=== PATIENT | male | born 2005 | race Caucasian/White ===

== ENCOUNTER → 2024-08-18 08:58 | Outpatient (CLI) | payer OTHER, MEDICAID, SELFPAY | PROVIDERS: PCP Pediatrics; Referring Provider Family Medicine; Visit Provider Family Medicine | DX: R05.3 Chronic cough (principal); R94.2 Abnormal results of pulmonary function studies; J98.8 Other specified respiratory disorders | CPT/HCPCS: 94060; 94726 ==